=== PATIENT | female | born 1975 | race Caucasian/White ===

== ENCOUNTER 2021-03-27 14:34 | Inpatient (IN) | payer MEDICAID, SELFPAY ==
[~2021-03-27] VITALS: Ht 160 cm; Wt 58.1 kg
[2021-03-27 15:02] VITALS: BP 125/68
--- NOTE | 2021-03-27 15:08 | NUR ---
45 Y/O F C/O RLQ ABD PIAN 01/27 STARTED 3 DAYS AGO. IT RADIATES TO HER R BACK FLANK PAIN. VITALS ARE STABLE DURING ASSESSMENT. NKA AND PMH.
[2021-03-27] MEDS ORDERED: NACL 0.9% 1,000 ML IV SCH (15:15)
--- NOTE | 2021-03-27 15:35 | NUR ---
PT UNABLE TO PROVIDE UA SAMPLE AT THIS TIME.
--- NOTE | 2021-03-27 15:35 | NUR ---
45 Y/O FEMALE C/O ABD PAIN 01/27 TO RLQ DESCRIBES BURNING X3DAYS WITH +N/-V, DENIES FEVER/CHILLS. ABD IS SOFT, ROUND, NON-TENDER TO PALPATION, BOWEL SOUNDS ACTIVE X4, LAST BM 03/27/21. DENIES PMH NKA
--- NOTE | 2021-03-27 15:48 | NUR ---
OBTAINED CT CONSENT PLACED IN PT CHART.
[2021-03-27] MEDS ORDERED: MORPHINE SULFATE 4 MG/ML SYR IVP ONE (15:55)
[2021-03-27] MEDS ORDERED: ONDANSETRON 4 MG/2 ML VIAL IVP ONE (15:55)
[2021-03-27 15:58] LABS: BASOPHILS # (AUTO) 0.1 K/uL (0.00-0.22); BASOPHILS % (AUTO) 0.5 % (0.0-2.0); EOSINOPHILS % (AUTO) 0.3 % (0.0-4.0); HEMATOCRIT 36.2 % (36-48); HEMOGLOBIN 12.1 g/dL (12.0-16.0); LYMPHOCYTES # (AUTO) 1.1 K/uL (2.5-16.5); LYMPHOCYTES % (AUTO) 11.5 % (20.5-51.1); MEAN CORPUSCULAR HEMOGLOBIN 30 pg (27-31); MEAN CORPUSCULAR HGB CONC 33 g/dL (33-37); MEAN CORPUSCULAR VOLUME 89.5 fL (80-94); MONOCYTES # (AUTO) 0.5 K/uL (0.8-1.0); MONOCYTES % (AUTO) 5.3 % (1.7-9.3); NEUTROPHILS # (AUTO) 8.1 K/uL (1.8-7.7); NEUTROPHILS % (AUTO) 82.4 % (42.2-75.2); PLATELET COUNT (AUTO) 231 K/uL (140-450); RED BLOOD CELL COUNT(AUTO) 4.05 MIL/uL (4.20-5.40); RED CELL DISTRIBUTION WIDTH 12.6 % (11.6-13.7); WHITE BLOOD COUNT (AUTO) 9.9 K/uL (4.8-10.8)
[2021-03-27 16:39] LABS: ALBUMIN 3.6 g/dL (3.4-5.0); ANION GAP 14.6 (8-16); CARBON DIOXIDE 24.9 mmol/L (21-32); CREATININE 0.6 mg/dL (0.6-1.3); POTASSIUM 3.5 mmol/L (3.5-5.1); TOTAL BILIRUBIN 0.6 mg/dL (0.0-1.0)
[2021-03-27 17:32] LABS: APPEARANCE,URINE CLEAR (CLEAR); BILIRUBIN,URINE NEGATIVE (NEGATIVE); BLOOD, URINE 3+ (NEGATIVE); LEUKOCYTE ESTERASE ,URINE NEGATIVE (NEGATIVE); NITRITE, URINE NEGATIVE (NEGATIVE); UGLUCOSE NEGATIVE (NEGATIVE)
[2021-03-27 17:50] LABS: COLOR,URINE STRAW (YELLOW)
[2021-03-27 17:51] LABS: RBC,URINE 80-100 /HPF (0-5); WBC,URINE 0-5 /HPF (0-5)
[2021-03-27] MEDS ORDERED: NACL 0.9% 1,000 ML IV ONE (18:40)
--- NOTE | 2021-03-27 19:21 | NUR ---
GAVE REPORT TO FREDDY DAS.
[2021-03-27] MEDS ORDERED: ACETAMINOPHEN 325 MG TAB PO PRN (19:35)
[2021-03-27] MEDS ORDERED: ONDANSETRON 4 MG/2 ML VIAL IVP PRN ×2 (19:35→21:45)
[2021-03-27] MEDS ORDERED: LORazepam 2 MG/ML VIAL IM/IVP PRN (19:35)
[2021-03-27] MEDS ORDERED: HYDROcodone/APAP 5/325 MG 1 TAB TAB PO PRN ×2 (19:35→23:30)
[2021-03-27] MEDS ORDERED: POTASSIUM CHLORIDE 10 MEQ TABER PO PRN (19:35)
[2021-03-27] MEDS ORDERED: ZOLPIDEM 5 MG TAB PO PRN (19:35)
[2021-03-27] MEDS ORDERED: DOCUSATE SODIUM 100 MG GELCAP PO PRN (19:35)
[2021-03-27] MEDS ORDERED: MORPHINE SULFATE 2 MG/ML SYR IVP PRN ×2 (19:35→23:30)
[2021-03-27] MEDS ORDERED: SODIUM PHOS / POTASSIUM PHOS 1 PKT PDR PO PRN (19:35)
[2021-03-27] MEDS ORDERED: MAG SULF 2000 MG/WATER PREMIX 50 ML IV PRN (19:35)
[2021-03-27 20:17] LABS: CHOL/HDL RATIO 2.3 (1-4.5); FREE T4 (FREE THYROXINE) 0.89 ng/dL (0.76-1.46); THYROID STIMULATING HORMONE 2.14 uIU/mL (0.34-3.74)
[2021-03-27 20:52] LABS: PROTHROMBIN TIME 9.5 secs (10.8-13.4)
[2021-03-27] MEDS ORDERED: BUPIVACAINE-MPF/EPI 0.25% 30 ML VIAL INJ ONE (21:28)
[2021-03-27] MEDS ORDERED: LIDOCAINE 1% 500 MG/50 ML VIAL ONE (21:28)
[2021-03-27] MEDS ORDERED: MIDAZOLAM 2 MG/2 ML VIAL ONE (21:32)
[2021-03-27] MEDS ORDERED: fentaNYL citrate 0.05 MG/ML VIAL ONE (21:32)
[2021-03-27] MEDS ORDERED: SUCCINYLCHOLINE CHLORIDE 200 MG/10 ML VIAL IVP ONE (21:32)
[2021-03-27] MEDS ORDERED: PROPOFOL 200 MG/20 ML VIAL IV ONE (21:32)
[2021-03-27] MEDS ORDERED: MEPERIDINE 25 MG/ML SYR IVP PRN (21:45)
[2021-03-27] MEDS ORDERED: HYDROmorphone 1 MG/ML AMP IVP PRN ×2 (21:45→23:30)
[2021-03-27] MEDS: LACTATED RINGERS 1,000 ML IV SCH (21:45)
[2021-03-27] MEDS ORDERED: diphenhydrAMINE 50 MG/ML VIAL IVP PRN (21:45)
[2021-03-27] MEDS ORDERED: PIPERACILLIN/TAZOBACTAM 3.375 GM VIAL IV ONE (21:45)
[2021-03-27] MEDS: PIPERACILLIN/TAZOBACTAM 3.375 GM in DEXTROSE 5% 50 ML IV SCH (21:50)
--- NOTE | 2021-03-27 21:53 | NUR ---
PT TAKEN TO OR VIA JOANNE
[2021-03-27] MEDS ORDERED: ROCURONIUM 50 MG/5 ML VIAL IV ONE (22:18)
[2021-03-27] MEDS ORDERED: ONDANSETRON 4 MG/2 ML VIAL ONE (22:18)
[2021-03-27] MEDS ORDERED: DEXAMETHASONE 4 MG/ML VIAL ONE (22:18)
[2021-03-27] MEDS ORDERED: SEVOFLURANE 250 ML BTL INH ONE (22:20)
[2021-03-27] MEDS ORDERED: SUGAMMADEX SODIUM 200 MG/2 ML VIAL IV ONE (22:56)
[2021-03-27] MEDS ORDERED: MEPERIDINE 25 MG/ML SYR ONE (22:58)
[2021-03-27] MEDS ORDERED: MORPHINE SULFATE 4 MG/ML SYR IV PRN (23:30)
[2021-03-27] MEDS ORDERED: ONDANSETRON 4 MG/2 ML VIAL IV PRN (23:30)
[2021-03-28 01:35] VITALS: BP 125/69
[2021-03-28 02:18] LABS: BARBITURATE, URINE NEGATIVE ng/ml (NEG <=200); BENZODIAZEPINE, URINE NEGATIVE ng/mL (NEG <=200); CANNABINOID, URINE NEGATIVE ng/mL (NEG <=50); COCAINE, URINE NEGATIVE ng/mL (NEG <=300); OPIATE, URINE POSITIVE ng/mL (NEG <=2000); PHENCYCLIDINE SCREEN,URINE NEGATIVE ng/mL (NEG <=25)
[2021-03-28 04:44] VITALS: BP 121/71
[2021-03-28] MEDS ORDERED: PIPERACILLIN/TAZOBACTAM 3.375 GM VIAL IV ONE (05:08)
[2021-03-28] MEDS: PIPERACILLIN/TAZOBACTAM 3.375 GM in DEXTROSE 5% 50 ML IV SCH ×2 (05:13→13:30)
[2021-03-28] MEDS: LACTATED RINGERS 1,000 ML IV SCH ×2 (05:14→13:54)
--- NOTE | 2021-03-28 05:28 | NUR ---
the pateint was admitted for right lower abdominal pain ,. she got hernia repair. . her admission dx is SBO. she does not have history of any medical condition the patient vitals are stable. breathing is even and unlabored. she sleeps comftraybly in her bed. comfrt and safety measures are provided.
--- NOTE | 2021-03-28 07:14 | NUR ---
RECEIVED REPORT FROM LICENSED RETAIL SUPERVISOR NURSE FOR CONTINUITY OF CARE, POC DISCUSSED. PT IS RESTING IN BED ON ROOM AIR WITH CHEST RISING AND FALLING EVEN AND UNLABORED. PT HAS A LEFT AC 22G RUNNING LR AT 120. ALL SAFETY MEASURES IN PLACE. CALL LIGHT WITHIN REACH. WILL CONTINUE TO MONITOR.
[2021-03-28 07:44] LABS: HEMATOCRIT 32.4 % (36-48); LYMPHOCYTES # (AUTO) 0.7 K/uL (2.5-16.5); MEAN CORPUSCULAR HEMOGLOBIN 31 pg (27-31); MEAN CORPUSCULAR HGB CONC 34 g/dL (33-37); MEAN CORPUSCULAR VOLUME 89.9 fL (80-94); MONOCYTES # (AUTO) 0.1 K/uL (0.8-1.0); MONOCYTES % (AUTO) 1.4 % (1.7-9.3); NEUTROPHILS # (AUTO) 9.2 K/uL (1.8-7.7); NEUTROPHILS % (AUTO) 91.6 % (42.2-75.2); PLATELET COUNT (AUTO) 202 K/uL (140-450); RED CELL DISTRIBUTION WIDTH 12.4 % (11.6-13.7)
[2021-03-28 08:00] VITALS: BP 97/56
[2021-03-28 08:17] LABS: ANION GAP 13.4 (8-16); CARBON DIOXIDE 23.7 mmol/L (21-32); CREATININE 0.5 mg/dL (0.6-1.3); MAGNESIUM 1.8 mg/dL (1.8-2.4); POTASSIUM 4.1 mmol/L (3.5-5.1); TOTAL BILIRUBIN 0.4 mg/dL (0.0-1.0)
--- NOTE | 2021-03-28 08:19 | NUR ---
PATIENT HAS BEEN SCREENED AND CATEGORIZED MODERATE NUTRITION RISK. PATIENT WILL BE SEEN WITHIN 3-5 DAYS OF ADMISSION. 03/28/21 04/01/21 REFERRAL RECEIVED NOT APPLICABLE [address]ILY [address]
--- NOTE | 2021-03-28 09:24 | NUR ---
ANSWERED ALL OF THE PTS AND PTS FAMILY MEMBERS QUESTIONS. PT IS SITTING UP IN BED ON ROOM AIR EATING BREAKFAST WITH NO COMPLAINTS OF PAIN. ALL SAFETY MEASURES IN PLACE. CALL LIGHT WITHIN REACH. WILL CONTINUE TO MONITOR.
[2021-03-28] MEDS ORDERED: DOCU-299 PO (10:15)
[2021-03-28] MEDS ORDERED: ACET-8386 PO (10:15)
[2021-03-28 12:00] VITALS: BP 113/60
--- NOTE | 2021-03-28 17:34 | NUR ---
PT HAS BEEN DISCHARGED IN STABLE CONDITION. ALL DISCHARGE EDUCATION HAS BEEN PROVIDED. PRESCRIPTION HAS BEEN GIVEN TO PT. PT HAS APPOINTMENT INFORMATION WITH DR NGUYEN. PT EDUCATED ON NOT LIFTING MORE THAN 5LBS AND PROVIDED WITH [employer]RS [employer] FOR WORK. ALL QUESTIONS HAS BEEN ANSWERED AND ALL NEEDS WERE MET. INCISIONS CLEANED WITH NS AND PAT DRIED. PT IS STABLE. PT HAS ALL BELONGINGS. PT IV REMOVED AND CATH IN PLACE. PT WHEELCHAIRED OUT WITH ALL HER BELONGINGS AND DISCHARGE INSTRUCTIONS.
== END 2021-03-28 19:07 | disposition home or self-care (01) | DRG 228 ==
LOC: MED 14:34 → MTU 19:33
PROVIDERS: ADMIT Family Medicine; ATTEND Family Medicine
PROC: 0YQ74ZZ Repair Right Femoral Region, Percutaneous Endoscopic Approach (ICD-10-PCS; principal; 2021-03-28)
PROC: 0QN Lower Bones, Release (ICD-10-PCS; 2021-03-28)
DX: K41.30 Unilateral femoral hernia, with obstruction, without gangrene, not specified as recurrent (principal); K56.609 Unspecified intestinal obstruction, unspecified as to partial versus complete obstruction; Z20.822 Contact with and (suspected) exposure to COVID-19; Z98.891 History of uterine scar from previous surgery
CPT/HCPCS: 36415; 71045; 74250; 76856; 80053; 80305; 81001; 82150; 83036; 83690; 83735; 83880; 84100; 84439; 84443; 84484; 85025; 85610; 85730; 87081; 93005; 96374; 96375; 99285; J0330; J1100; J2001; J2175; J2250; J2270; J2405; J2543; J2704; J3010; J3490; J7030; J7060; J7120; Q0092; Q9967